=== PATIENT | female | born 1985 | race Caucasian/White ===

== ENCOUNTER 2019-07-04 21:28 | Emergency (ER) | payer MEDICAID, SELFPAY ==
[2019-07-04 21:29] VITALS: BP 135/74; PULSE 97; RESP 18; TEMP 36.8; O2SAT 99; BMI 21.9
[2019-07-04] MEDS: LORazepam 2 MG/ML Syringe IM (21:45)
[2019-07-04] MEDS: Haloperidol Lactate 5 MG/ML Vial IM (21:45)
--- NOTE | 2019-07-04 22:21 | ED.VISSUMM ---
- ER Visit Summary Date of Service: 07/04/19 Chief Complaint: [Agitation] History of Present Illness: The patient is a 33 F [brought to the emergency department via EMS from the [facility]. Patient apparently became agitated and belligerent towards others at the [facility]. There is concern for illicit drug use. Patient was not making much sense. She is really unable to give me much history as she has incoherent thoughts. He does not answer questions appropriately. She is quite agitated and labile.] Patient did tell nursing staff that she does have psychiatric history and has been seen in [place] at 1 of the psychiatric facilities there. Physical Examination: [HEENT-PERRLA, EOMI. Cranial nerves II through XII grossly intact. TMs clear. Mucous membranes moist. No adenopathy. Cardiovascular-regular rate and rhythm without murmur or ectopy Lungs-clear to auscultation, chest wall stable without crepitus or subcu emphysema Abdomen-normoactive bowel sounds, soft, nontender, no rebound or rigidity, no peritoneal signs. Extremities-intact ?4, normal range of motion, normal pulses, atraumatic. Patient appears to have some track meyers on her right hand dorsal aspect.] Test Results: [CBC with differential obtained showed a white count 6.5, hemoglobin 12.9, hematocrit 39, platelets 189.] Toxicology screen positive for opiates, amphetamines, methamphetamines, and THC. Emergency Department Course and Treatment: [Patient was medicated with Haldol 5 mg IM as well as Ativan 2 mg IM. Patient became much more cooperative and lucid.] Treatment Plan: [Care patient will be turned over to the night physician awaiting normalization of mentation. She will need to be reinterviewed and potentially seen by crisis. I suspect a lot of her psychosis may be due to illicit drug use related to the amphetamines.] Disposition: [Pending] Impression: [Psychosis-suspect drug-induced] Illicit drug use This note was generated with [employer] software. It may contain incorrect words, spelling, and punctuation that were not noted in review of the chart prior to signing ED Disposition - Plan for ED Patient: Referrals: NOT,DEFINED [NON-STAFF] -
[2019-07-04 22:34] LABS: Absolute Lymphocyte Count 1.42 X10^3/uL (0.83-4.51); Absolute Neutrophil Count 4.5 X10^3/uL (2.0-7.7); Basophil# 0.04 X10^3/uL; Basophil% 0.6 % (0-1); Eosinophil# 0.14 X10^3/uL; Eosinophils% 2.1 % (0-5); Hematocrit 38.9 % (37-47); Hemoglobin 12.9 g/dL (12.0-15.0); Lymphocyte # 1.42 X10^3/ul (4.0); Lymphocyte % 21.8 % (19-41); Mean Corp Hgb Conc 33.2 g/dL (32-36); Mean Corpuscular Hgb 29.5 pg (27.0-32.0); Mean Corpuscular Volume 88.8 fL (81-99); Mean Platelet Vol. 9.4 fl (6.2-12.0); Monocyte# 0.45 X10^3/uL; Monocyte% 6.9 % (0-10); NRBC Flagged by Analyzer 0 % (0-5); Neutrophil # 4.45 X10^3/uL (2.7-7.7); Neutrophil % 68.3 % (47-70); Platelet Count 189 K/mm3 (150-450); RBC Distribution Width CV 15.6 % (11.6-14.6); RBC Distribution Width SD 49.8 fl (35.1-43.9); Red Blood Count 4.38 M/mm3 (4.2-5.4); White Blood Count 6.5 K/mm3 (4.4-11.0)
[2019-07-04 22:43] LABS: Amphetamine Urine VISTA POSITIVE (<1000 ng/mL); Barbiturate Urine VISTA NEGATIVE (< 200 ng/mL); Benzodiazepine Urine VISTA NEGATIVE (< 200 ng/mL); Cocaine Urine VISTA NEGATIVE (< 300 ng/mL); Ecstacy Urine VISTA POSITIVE (< 500 ng/mL); Methadone Urine VISTA NEGATIVE (< 300 ng/mL); PCP Urine VISTA NEGATIVE (< 25 ng/mL); THC Urine VISTA POSITIVE (< 50 ng/mL); Vista UDS pH Range 6
[2019-07-04 22:45] LABS: Internal QC Validated? YES +Cl - CLEAR BKGD; Pregnancy, Serum, hCG Quali. NEGATIVE Negative
[2019-07-04 22:46] LABS: Anion Gap 9 (5-15); BUN 9 mg/dL (7-18); BUN/Creat Ratio 13.2 RATIO (10-20); Calcium,Total 8.4 mg/dL (8.5-10.1); Chloride 105 mmol/L (98-107); Creatinine, Serum 0.68 mg/dL (0.55-1.02); EST Glomerular Filtration Rate 105 mL/min (>60); Est Glom Filt Rate - Afr Amer 127 mL/min (>60); Estimated Creatinine Clearance 103.91 ml/min; Glucose 62 mg/dL (74-106); Potassium 3.8 mmol/L (3.5-5.1); Sodium Level 139 mmol/L (136-145)
[2019-07-04 23:00] VITALS: RESP 16
[2019-07-05] VITALS (11 sets, daily range): BP systolic 113–129; BP diastolic 63–83; PULSE 99–101; RESP 15–16; O2SAT 97–99
--- NOTE | 2019-07-05 09:13 | NURSING ---
CALLED CRISIS FOR PATIENT. LEFT MESSAGE WITH ANSWERING SERVICE
--- NOTE | 2019-07-05 09:18 | ED.RN ---
CRISIS CALL BACK. STATES THAT CRISIS TEAM IS NOT SEEING PATIENTS FACE TO FACE AND PHONE INTERVIEWS ONLY WOULD BE CONDUCTED AT THIS TIME. CRISIS INFORMED THAT CASE MANAGEMENT/SOCIAL WORK WOULD BE ARRIVING AT 1000 AND WOULD BE CONTACTED FOR FACE TO FACE ASSESSMENT, RETURN CALL TO CRISIS IF CM/SW COULD NOT BE COMPLETED.
--- NOTE | 2019-07-05 10:25 | NURSING ---
JENY, CASE MANAGEMENT IN ROOM
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
--- NOTE | 2019-07-05 11:43 | CM.ED ---
Social Work Telephone call from [facility]. They are able to accept patient into [facility]. Shirlene to set up taxi service to come and pick patient up. Updated patient, medical team. All agreeable to plan. Aman MIRZA, DACIA
--- NOTE | 2019-07-05 12:02 | ED.DEP ---
ED Disposition - Plan for ED Patient: Diagnosis: Depression, Suicidal ideations Instructions: Drug Abuse Referrals: NOT,DEFINED [NON-STAFF] - Additional Instructions: Follow-up with [facility] center for suicidal ideation drug abuse and other mental health issues
== END 2019-07-05 12:11 | disposition home or self-care (01) ==
LOC: ED 22:33
PROVIDERS: Emergency Provider Emergency Medicine
DX: F29 Unspecified psychosis not due to a substance or known physiological condition (principal); F15.90 Other stimulant use, unspecified, uncomplicated; F11.90 Opioid use, unspecified, uncomplicated; F12.90 Cannabis use, unspecified, uncomplicated; Z72.0 Tobacco use; Z79.899 Other long term (current) drug therapy
CPT/HCPCS: 80048; 80307; 80320; 84703; 85025; 96372; 99284; A4216; G0480

== ENCOUNTER 2019-07-06 13:44 | Emergency (ER) | payer MEDICAID, SELFPAY ==
[2019-07-06 13:45] VITALS: BP 118/84; PULSE 108; RESP 16; TEMP 36.9; O2SAT 98; BMI 21.4
[2019-07-06 14:18] LABS: Absolute Lymphocyte Count 1.47 X10^3/uL (0.83-4.51); Absolute Neutrophil Count 4.8 X10^3/uL (2.0-7.7); Basophil# 0.03 X10^3/uL; Basophil% 0.4 % (0-1); Hematocrit 40.8 % (37-47); Hemoglobin 13.1 g/dL (12.0-15.0); Lymphocyte # 1.47 X10^3/ul (4.0); Lymphocyte % 21.6 % (19-41); Mean Corp Hgb Conc 32.1 g/dL (32-36); Mean Corpuscular Hgb 28.9 pg (27.0-32.0); Mean Corpuscular Volume 90.1 fL (81-99); Mean Platelet Vol. 9.8 fl (6.2-12.0); Monocyte# 0.48 X10^3/uL; Monocyte% 7.1 % (0-10); NRBC Flagged by Analyzer 0 % (0-5); Neutrophil # 4.79 X10^3/uL (2.7-7.7); Neutrophil % 70.6 % (47-70); Platelet Count 232 K/mm3 (150-450); RBC Distribution Width CV 15.4 % (11.6-14.6); RBC Distribution Width SD 50.6 fl (35.1-43.9); Red Blood Count 4.53 M/mm3 (4.2-5.4); White Blood Count 6.8 K/mm3 (4.4-11.0)
[2019-07-06 14:26] LABS: Internal QC Validated? YES +Cl - CLEAR BKGD; Pregnancy, Serum, hCG Quali. NEGATIVE Negative
[2019-07-06 14:30] LABS: Anion Gap 7 (5-15); BUN 14 mg/dL (7-18); BUN/Creat Ratio 17.5 RATIO (10-20); Calcium,Total 8.9 mg/dL (8.5-10.1); Chloride 107 mmol/L (98-107); EST Glomerular Filtration Rate 87 mL/min (>60); Est Glom Filt Rate - Afr Amer 105 mL/min (>60); Estimated Creatinine Clearance 88.32 ml/min; Glucose 99 mg/dL (74-106); Sodium Level 140 mmol/L (136-145)
[2019-07-06 14:43] LABS: Alcohol, Blood (Medical)-Serum < 3.0 mg/dL
[2019-07-06 14:57] LABS: Amphetamine Urine VISTA POSITIVE (<1000 ng/mL); Barbiturate Urine VISTA NEGATIVE (< 200 ng/mL); Benzodiazepine Urine VISTA NEGATIVE (< 200 ng/mL); Cocaine Urine VISTA NEGATIVE (< 300 ng/mL); Ecstacy Urine VISTA POSITIVE (< 500 ng/mL); Methadone Urine VISTA NEGATIVE (< 300 ng/mL); PCP Urine VISTA NEGATIVE (< 25 ng/mL); THC Urine VISTA POSITIVE (< 50 ng/mL); Vista UDS pH Range 6
[2019-07-06] MEDS: LORazepam 1 MG Tablet PO (15:01)
[2019-07-06] MEDS: Acetaminophen 500 MG Tablet 1000 MG PO (15:01)
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
--- NOTE | 2019-07-06 15:08 | NURSING ---
CALLED CRISIS. LEFT MESSAGE. JH TO CALL BACK
--- NOTE | 2019-07-06 15:10 | NURSING ---
JH,JOSE R, CALLED BACK. SHE IS ON HER WAY IN TO SEE PATIENT
--- NOTE | 2019-07-06 16:23 | NURSING ---
JH,CRISIS, HERE
[2019-07-06 18:00] LABS: Bedside Glucose 110 mg/dL (70-110)
[2019-07-06 19:00] VITALS: BP 104/65; PULSE 77; RESP 16; O2SAT 98
[2019-07-06 20:25] VITALS: RESP 16
[2019-07-06 21:42] VITALS: BP 104/65; PULSE 77; RESP 14; RESP 16; O2SAT 98
== END 2019-07-06 22:20 ==
LOC: ED 14:07
PROVIDERS: Emergency Provider Emergency Medicine
DX: R45.851 Suicidal ideations (principal); F90.9 Attention-deficit hyperactivity disorder, unspecified type; F20.9 Schizophrenia, unspecified; F15.90 Other stimulant use, unspecified, uncomplicated; F12.90 Cannabis use, unspecified, uncomplicated; Z79.899 Other long term (current) drug therapy; Z72.0 Tobacco use
CPT/HCPCS: 36415; 80048; 80307; 80320; 82962; 84703; 85025; 99285; G0480

== ENCOUNTER 2022-07-14 14:11 | Emergency (ER) | payer MEDICAID, SELFPAY ==
[2022-07-14 14:12] VITALS: BP 121/77; PULSE 75; RESP 16; TEMP 36.6; O2SAT 99; BMI 25.6
--- NOTE | 2022-07-14 14:25 | ED.RN ---
pt homicidal with irrational thought, delusions. cooperative at this time.
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
[2022-07-14 15:23] LABS: Absolute Lymphocyte Count 1.55 X10^3/uL (0.83-4.51); Absolute Neutrophil Count 6.8 X10^3/uL (2.0-7.7); Basophil# 0.05 X10^3/uL; Basophil% 0.6 % (0-1); Eosinophil# 0.03 X10^3/uL; Eosinophils% 0.3 % (0-5); Hematocrit 42.5 % (37-47); Hemoglobin 14.2 g/dL (12.0-15.0); Lymphocyte # 1.55 X10^3/ul (0.83-4.51); Lymphocyte % 17.6 % (19-41); Mean Corp Hgb Conc 33.4 g/dL (32-36); Mean Corpuscular Hgb 29.3 pg (27.0-32.0); Mean Corpuscular Volume 87.8 fL (81-99); Mean Platelet Vol. 10.6 fl (6.2-12.0); Monocyte# 0.39 X10^3/uL; Monocyte% 4.4 % (0-10); NRBC Flagged by Analyzer 0 % (0-5); Neutrophil # 6.78 X10^3/uL (2.7-7.7); Neutrophil % 76.9 % (47-70); Platelet Count 233 K/mm3 (150-450); RBC Distribution Width CV 13.1 % (11.6-14.6); RBC Distribution Width SD 42.3 fl (35.1-43.9); Red Blood Count 4.84 M/mm3 (4.2-5.4); White Blood Count 8.8 K/mm3 (4.4-11.0)
[2022-07-14 15:48] LABS: Anion Gap 6 (5-15); BUN 11 mg/dL (7-18); BUN/Creat Ratio 15.4 RATIO (10-20); Calcium,Total 9.1 mg/dL (8.5-10.1); Chloride 107 mmol/L (98-107); Creatinine, Serum 0.71 mg/dL (0.55-1.02); EST Glomerular Filtration Rate 98 mL/min (>60); Est Glom Filt Rate - Afr Amer 118 mL/min (>60); Estimated Creatinine Clearance 96.67 ml/min; Glucose 106 mg/dL (74-106); Potassium 3.7 mmol/L (3.5-5.1); Sodium Level 135 mmol/L (136-145)
[2022-07-14 16:15] LABS: Alcohol, Blood (Medical)-Serum < 3.0 mg/dL
[2022-07-14 16:21] LABS: Internal QC Validated? YES +Cl - CLEAR BKGD; Pregnancy, Serum, hCG Quali. NEGATIVE Negative
[2022-07-14 16:30] LABS: Amphetamine Urine VISTA NEGATIVE (<1000 ng/mL); Barbiturate Urine VISTA NEGATIVE (< 200 ng/mL); Benzodiazepine Urine VISTA NEGATIVE (< 200 ng/mL); Cocaine Urine VISTA NEGATIVE (< 300 ng/mL); Ecstacy Urine VISTA NEGATIVE (< 500 ng/mL); Methadone Urine VISTA NEGATIVE (< 300 ng/mL); PCP Urine VISTA NEGATIVE (< 25 ng/mL); THC Urine VISTA NEGATIVE (< 50 ng/mL); Vista UDS pH Range 6
[2022-07-14 17:35] VITALS: BP 134/78; PULSE 78; RESP 16; O2SAT 98
[2022-07-14 19:00] VITALS: PULSE 72; RESP 18; O2SAT 96
[2022-07-14 21:00] VITALS: PULSE 74; RESP 16; O2SAT 98
[2022-07-14] MEDS: LORazepam 1 MG Tablet PO (22:42)
--- NOTE | 2022-07-14 23:12 | NURSING ---
ACCEPTED TO GENERATIONS BY DR. ABURTO ADULT [facility] [phone]
[2022-07-15 01:00] VITALS: BP 132/77; PULSE 79; RESP 16; O2SAT 99
--- NOTE | 2022-07-15 03:09 | EKG12_ITS ---
Test Reason : MHC Blood Pressure : / mmHG Vent. Rate : 079 BPM Atrial Rate : 079 BPM P-R Int : 136 ms QRS Dur : 080 ms QT Int : 416 ms P-R-T Axes : 068 067 059 degrees QTc Int : 477 ms Normal sinus rhythm Normal ECG Confirmed by FATUMA RHOADES, MALIA ([id number]), editor continuity and script GARY RYDER ([id number]) on 07/17/2022 11:12:39 AM Referred By: WILSON Confirmed By:CRYSTAL BURRIS MD
[2022-07-15 06:42] VITALS: BP 110/70; PULSE 88; RESP 16; TEMP 36.8; O2SAT 98
== END 2022-07-15 07:05 ==
PROVIDERS: Physician Assistant; Emergency Provider Emergency Medicine; Visit Provider Emergency Medicine
DX: F23 Brief psychotic disorder (principal); F22 Delusional disorders; F17.210 Nicotine dependence, cigarettes, uncomplicated
CPT/HCPCS: 36415; 80048; 80307; 82077; 84703; 85025; 93005; 99285